=== PATIENT | male | born 1970 | race Caucasian/White ===

== ENCOUNTER 2019-12-28 05:18 | Inpatient (IN) ==
[2019-12-23 11:25] LABS: Basophils # 0.1 10*3/uL (0.0-0.2); Basophils % 0.7 % (0.0-0.8); Eosinophils # 0.2 10*3/uL (0.0-0.87); Hematocrit 43.4 VOL% (42.0-52.0); Hemoglobin 14.2 GM/DL (14.0-18.0); Immature Granulocytes % 0.4 %; Immature Granulocytes Absolute 0.03 #; Lymphocytes # 2.4 10*3/uL (1.4-4.0); Lymphocytes % 28.5 % (21.2-54.2); Mean Corpuscular HGB Conc 32.7 GM/DL (32-36); Mean Corpuscular Volume 88.4 FL (87-102); Mean Platelet Volume 10.4 FL (9.6-12.0); Monocytes % 6.9 % (1.7-12.7); Neutrophils % 61.5 % (38.7-73.9); Platelet Count 236 T/CUMM (130-400); Red Blood Count 4.91 MC/CUMM (3.8-5.5); White Blood Count 8.4 T/CUMM (4-12)
[2019-12-23 11:35] LABS: Albumin 3.7 G/DL (3.4-5.0); Calcium 9.2 MG/DL (8.5-10.1); Osmolality,Calculated 282.5 MOS/KG (273-304); Total Protein 7.6 G/DL (6.4-8.3)
[2019-12-23 11:36] LABS: PT Patient Result 10.4 SECS (9.8-11.9); Partial Thromboplastin Time 28.5 SECS (23.9-33.8)
[2019-12-23 11:36] LABS: Apearance,Urine CLOUDY (Clear); Bilirubin,Urine Negative (Negative); Blood, Urine Negative (Negative); Glucose,Urine (UA) >=500 mg/dL (Negative); Ketones,Urine Negative (Negative); Mucus,Urine Many /LPF (Occasional); Nitrite,Urine Negative (Negative); Protein,Urine 30 MG/DL; RBC,Urine 8 /HPF (0-4); Sperm,Urine Moderate /HPF (Negative); Urine Color Amber (Yellow); Urine Specific Gravity 1.025 (1.001-1.035); Urine Urobilinogen < 2.0 EU/DL (0.2-1.0); WBC,Urine 1 /HPF (0-6)
[2019-12-28] MEDS ORDERED: VANCOMYCIN 1,000 MG VIAL ONE (06:17)
[2019-12-28] MEDS ORDERED: CLINDAMYCIN INJ 50 ML IV ONE (06:17)
[2019-12-28] MEDS ORDERED: BACITRACIN OINT 0.9 GM PACK TOP ONE (06:33)
[2019-12-28] MEDS ORDERED: LACTATED RINGERS 1,000 ML IV SCH (07:00)
[2019-12-28] MEDS ORDERED: CLINDAMYCIN INJ 900 MG in PREMIX 1 EACH IV ONE (07:00)
[2019-12-28] MEDS ORDERED: VANCOMYCIN INJ 1,000 MG in SODIUM CHLORIDE 0.9% 250 ML IV ONE ×3 (07:00→16:00)
[2019-12-28] MEDS ORDERED: diphenhydrAMINE CAP 25 MG CAPSULE PO PRN (07:07)
[2019-12-28] MEDS ORDERED: ONDANSETRON 4 MG/2 ML VIAL IV PRN (07:07)
[2019-12-28] MEDS ORDERED: MAGNESIUM HYDROXIDE SUSP 30 ML UDCUP PO PRN (07:07)
[2019-12-28] MEDS ORDERED: MORPHINE 4 MG/1 ML VIAL IV PRN (07:07)
[2019-12-28] MEDS ORDERED: ZALEPLON 5 MG CAPSULE PO PRN (07:07)
[2019-12-28] MEDS ORDERED: TRANEXAMIC ACID 1,000 MG/10 ML VIAL ONE (07:50)
[2019-12-28] MEDS: LACTATED RINGERS 1,000 ML IV SCH ×2 (08:31→20:25)
[2019-12-28] MEDS ORDERED: propofoL 200 MG/20 ML VIAL IV ONE (09:09)
[2019-12-28] MEDS ORDERED: ONDANSETRON 4 MG/2 ML VIAL ONE (09:10)
[2019-12-28] MEDS ORDERED: ROPIVACAINE 0.5% 30 ML VIAL ONE (09:10)
[2019-12-28] MEDS ORDERED: MIDAZOLAM 2 MG/2 ML VIAL ONE (09:10)
[2019-12-28] MEDS ORDERED: SODIUM CHLORIDE 0.9% 200 ML IV ONE (09:10)
[2019-12-28] MEDS ORDERED: BUPIVACAINE SPINAL 0.75% 2 ML AMP SPINAL ONE (09:10)
[2019-12-28] MEDS ORDERED: fentaNYL 100 MCG/2 ML VIAL ONE (09:10)
[2019-12-28] MEDS ORDERED: LACTATED RINGERS 1,000 ML IV ONE (09:10)
[2019-12-28] MEDS ORDERED: PHENYLEPHRINE 1 MG/10 ML SYRINGE IV ONE (09:10)
[2019-12-28 09:11] LABS: Apearance,Urine CLEAR (Clear); Bilirubin,Urine Negative (Negative); Blood, Urine Negative (Negative); Calcium Oxalate Crystals,Urine Occasional /HPF (Few); Glucose,Urine (UA) Negative (Negative); Ketones,Urine Negative (Negative); Mucus,Urine Few /LPF (Occasional); Nitrite,Urine Negative (Negative); Protein,Urine Negative; RBC,Urine <1 /HPF (0-4); Squamous Epithelial Cell,Urine Occasional /HPF (0-10); Urine Color Yellow (Yellow); Urine Specific Gravity 1.026 (1.001-1.035); Urine Urobilinogen < 2.0 EU/DL (0.2-1.0); WBC,Urine <1 /HPF (0-6)
[2019-12-28] MEDS: KETOROLAC 30 MG/1 ML VIAL IV SCH ×3 (09:35→18:43)
[2019-12-28] MEDS ORDERED: KETOROLAC 30 MG/1 ML VIAL ONE (09:35)
[2019-12-28] MEDS ORDERED: hydrALAZINE 20 MG/1 ML VIAL IV PRN (12:18)
[2019-12-28] MEDS: DOCUSATE SODIUM 100 MG CAPSULE PO SCH ×2 (12:41→20:24)
[2019-12-28] MEDS ORDERED: CLINDAMYCIN INJ 900 MG in PREMIX 1 EACH IV SCH (14:00)
[2019-12-28] MEDS: CLINDAMYCIN INJ 900 MG in PREMIX 1 EACH IV SCH ×2 (14:58→22:15)
[2019-12-28] MEDS: hydrALAZINE 25 MG TABLET PO SCH (20:24)
[2019-12-28] MEDS: MORPHINE 4 MG/1 ML VIAL IV PRN (22:14)
[2019-12-29] MEDS: KETOROLAC 30 MG/1 ML VIAL IV SCH (01:48)
[2019-12-29] MEDS: FONDAPARINUX 2.5 MG/0.5 ML SYRINGE SUBCUT SCH (05:31)
[2019-12-29] MEDS: LACTATED RINGERS 1,000 ML IV SCH (05:31)
[2019-12-29 05:59] LABS: Basophils % 0.1 % (0.0-0.8); Eosinophils % 0.1 % (0.00-10.9); Hemoglobin 11.2 GM/DL (14.0-18.0); Immature Granulocytes % 0.4 %; Immature Granulocytes Absolute 0.04 #; Lymphocytes # 1.6 10*3/uL (1.4-4.0); Lymphocytes % 17.8 % (21.2-54.2); Mean Corpuscular Volume 91.9 FL (87-102); Mean Platelet Volume 10.2 FL (9.6-12.0); Monocytes % 10.3 % (1.7-12.7); Neutrophils % 71.3 % (38.7-73.9); Platelet Count 226 T/CUMM (130-400); Red Blood Count 3.81 MC/CUMM (3.8-5.5); Red Cell Distribution Width 12.9 % (9.3-17.3)
[2019-12-29] MEDS: MORPHINE 4 MG/1 ML VIAL IV PRN (06:27)
[2019-12-29 06:28] LABS: Calcium 8.2 MG/DL (8.5-10.1); Osmolality,Calculated 281.4 MOS/KG (273-304)
[2019-12-29] MEDS ORDERED: DEXTROSE 50% 25 GM/50 ML VIAL IV PRN (08:57)
[2019-12-29] MEDS ORDERED: GLUCAGON 1 MG VIAL IM PRN (08:57)
[2019-12-29] MEDS: hydrALAZINE 25 MG TABLET PO SCH ×2 (09:53→20:54)
[2019-12-29] MEDS: amLODIPine 10 MG TABLET PO SCH (09:53)
[2019-12-29] MEDS: DOCUSATE SODIUM 100 MG CAPSULE PO SCH ×2 (09:53→20:54)
[2019-12-29] MEDS: INSULIN REGULAR 100 UNIT/ML SUBCUT SCH ×3 (11:09→20:45)
[2019-12-29] MEDS: CELECOXIB 200 MG CAPSULE PO SCH (14:40)
[2019-12-30] MEDS: FONDAPARINUX 2.5 MG/0.5 ML SYRINGE SUBCUT SCH (06:16)
[2019-12-30 06:20] LABS: Basophils # 0.1 10*3/uL (0.0-0.2); Basophils % 0.6 % (0.0-0.8); Eosinophils # 0.1 10*3/uL (0.0-0.87); Eosinophils % 1.4 % (0.00-10.9); Hematocrit 34.4 VOL% (42.0-52.0); Hemoglobin 11.1 GM/DL (14.0-18.0); Immature Granulocytes % 0.5 %; Immature Granulocytes Absolute 0.04 #; Mean Corpuscular HGB Conc 32.3 GM/DL (32-36); Mean Corpuscular Volume 90.8 FL (87-102); Mean Platelet Volume 10.3 FL (9.6-12.0); Monocytes % 9.7 % (1.7-12.7); Neutrophils % 62.8 % (38.7-73.9); Platelet Count 199 T/CUMM (130-400); Red Blood Count 3.79 MC/CUMM (3.8-5.5); Red Cell Distribution Width 13.2 % (9.3-17.3)
[2019-12-30 06:50] LABS: Risk Ratio 4.37
[2019-12-30] MEDS: INSULIN REGULAR 100 UNIT/ML SUBCUT SCH ×4 (07:51→20:38)
[2019-12-30] MEDS ORDERED: BISACODYL 5 MG TABLET PO ONE (08:49)
[2019-12-30] MEDS ORDERED: MAGNESIUM HYDROXIDE SUSP 30 ML UDCUP PO ONE (08:49)
[2019-12-30] MEDS: amLODIPine 10 MG TABLET PO SCH (09:26)
[2019-12-30] MEDS: DOCUSATE SODIUM 100 MG CAPSULE PO SCH ×2 (09:26→20:38)
[2019-12-30] MEDS: CELECOXIB 200 MG CAPSULE PO SCH (09:26)
[2019-12-30] MEDS: hydrALAZINE 25 MG TABLET PO SCH ×2 (09:27→20:38)
[2019-12-30] MEDS: lisinopriL 5 MG TABLET PO SCH (09:27)
[2019-12-31 04:57] LABS: Basophils % 0.4 % (0.0-0.8); Eosinophils # 0.1 10*3/uL (0.0-0.87); Eosinophils % 1.5 % (0.00-10.9); Hematocrit 35.7 VOL% (42.0-52.0); Hemoglobin 11.4 GM/DL (14.0-18.0); Immature Granulocytes % 0.4 %; Immature Granulocytes Absolute 0.04 #; Lymphocytes # 2.1 10*3/uL (1.4-4.0); Lymphocytes % 23.2 % (21.2-54.2); Mean Corpuscular HGB Conc 31.9 GM/DL (32-36); Mean Corpuscular Volume 90.4 FL (87-102); Mean Platelet Volume 10.3 FL (9.6-12.0); Monocytes % 9.4 % (1.7-12.7); NRBC # 0.03 10*3/uL; Neutrophils % 65.1 % (38.7-73.9); Platelet Count 217 T/CUMM (130-400); Red Blood Count 3.95 MC/CUMM (3.8-5.5); Red Cell Distribution Width 13.2 % (9.3-17.3); White Blood Count 8.9 T/CUMM (4-12)
[2019-12-31] MEDS: FONDAPARINUX 2.5 MG/0.5 ML SYRINGE SUBCUT SCH (06:12)
[2019-12-31] MEDS: INSULIN REGULAR 100 UNIT/ML SUBCUT SCH ×2 (08:03→12:31)
[2019-12-31] MEDS: hydrALAZINE 25 MG TABLET PO SCH (09:52)
[2019-12-31] MEDS: CELECOXIB 200 MG CAPSULE PO SCH (09:52)
[2019-12-31] MEDS: lisinopriL 5 MG TABLET PO SCH (09:52)
[2019-12-31] MEDS: amLODIPine 10 MG TABLET PO SCH (09:53)
[2019-12-31] MEDS: DOCUSATE SODIUM 100 MG CAPSULE PO SCH (09:53)
[2019-12-31 11:16] VITALS: BP 150/83
== END 2019-12-31 15:30 | disposition home health service (06) | DRG 470 ==
LOC: N.OR 05:18 → N.SDSINP 05:20 → EDSEX 07:30 → EDSTATUS 07:30 → N.3E 10:10
PROVIDERS: ADMIT Orthopaedic Surgery; ATTEND Orthopaedic Surgery